=== PATIENT | male | born 1965 | race Caucasian/White ===

== ENCOUNTER → 2018-11-09 | Day surgery (SDC) | payer OTHER ==
[~2018-11-09] MED LIST: LIDOCAINE 1% INJ-PF (10 MG/ML) 30 ML SDV ONE
--- NOTE | 2018-11-09 14:18 | RADIOLOGY REPORT (SQ) ---
EXAM DESCRIPTION: ARTHRO SHOULDER INJECTION; FLUORO/NEEDLE PLACEMENT COMPLETED DATE/TIME: 11/09/2018 1:51 pm REASON FOR STUDY: (M25.512)PAIN IN LEFT SHOULDER M25.512 PAIN IN LEFT SHOULDER COMPARISON: None. FLUOROSCOPY TIME: 0.2 minutes. 1 images saved to PACS. LIMITATIONS: None. PROCEDURE: Procedure, risks, benefits and alternatives explained to patient who then gave written co nsent. The left shoulder was marked and a time out was called for correct procedure verification. Po sterior entry site marked using fluoroscopic guidance. Shoulder prepped and draped using sterile anel hnique. Local anesthesia achieved using 1% lidocaine injection. Hypodermic needle introduced into t he joint space under direct fluoroscopic visualization. Non-ionic contrast instilled to confirm intra -articular position. Dilute gadolinium solution then injected. Needle removed and entry site covered with sterile bandage. No immediate complications noted. TECHNIQUE: Digital images acquired during fluoroscopy and stored on PACS. Patient immediately take n to the MR suite for additional imaging. INJECTION LOCATION: Posterior left shoulder. CONTRAST TYPE AND AMOUNT: 1 mL Omnipaque and 10 mL Dotarem/Saline mixture. IMPRESSION: SUCCESSFUL NEEDLE PLACEMENT AND INJECTION FOR LEFT SHOULDER MR ARTHROGRAM USING POSTERIO R APPROACH. COMMENT: Quality ID [id number]: Final reports for procedures using fluoroscopy that document radiation exp osure indices, or exposure time and number of fluorographic images (if radiation exposure indices are not available) TECHNICAL DOCUMENTATION: JOB ID: [id number] [employer]- All Rights Reserved Reading location - IP/workstation name: [email or web address]
--- NOTE | 2018-11-09 14:37 | RADIOLOGY REPORT (SQ) ---
EXAM DESCRIPTION: MRI LT UPPER JOINT WITH COMPLETED DATE/TIME: 11/09/2018 2:10 pm REASON FOR STUDY: (M25.512)PAIN IN LEFT SHOULDER M25.512 PAIN IN LEFT SHOULDER COMPARISON: None. TECHNIQUE: Left shoulder images acquired and stored on PACS. Oblique coronal, oblique sagittal, and axial imaging to include fat sensitive sequences as T1, water sensitive sequences as FST2/STIR, and c ontrast sensitive sequences as FST1. LIMITATIONS: Motion. FINDINGS: JOINT DISTENTION: Adequate distention for interpretation. BONE MARROW AND CORTEX: Normal. No significant osteophytes. No edema or defects. AC JOINT: Type II acromion. No significant AC joint arthropathy. GLENOHUMERAL JOINT: No subluxation or dislocation. No focal chondral defects or reactive bone changes . ROTATOR CUFF: No significant tear identified. LABRUM AND BICEPS LABRAL COMPLEX: Increased signal in the anterior superior labrum most consistent wi th sublabral recess variant. No definite labral tear identified. INFERIOR LABRAL COMPLEX: Bony glenoid and labrum intact. IGHL intact without thickening or tear. No p aralabral cysts. ADJACENT SOFT TISSUES: No masses or nodes. OTHER: No other significant finding. IMPRESSION: Anatomic variant sublabral recess. No definite labral tear identified. TECHNICAL DOCUMENTATION: JOB ID: [id number] [employer]- All Rights Reserved Reading location - IP/workstation name: [email or web address]
== END ==
LOC: RAD 12:33
PROVIDERS: ATTEND Orthopaedic Surgery Sports Medicine
DX: M25.512 Pain in left shoulder (principal)
CPT/HCPCS: 73222; 77002; 23350; A9576; J3490

== ENCOUNTER → 2019-02-27 | Outpatient (CLI) | payer OTHER ==
--- NOTE | 2019-02-27 12:59 | RADIOLOGY REPORT (SQ) ---
EXAM DESCRIPTION: CHEST PA/LATERAL COMPLETED DATE/TIME: 02/27/2019 10:02 am REASON FOR STUDY: COUGH COMPARISON: 08/13/2013 EXAM PARAMETERS: NUMBER OF VIEWS: two views TECHNIQUE: Digital Frontal and Lateral radiographic views of the chest acquired. RADIATION DOSE: NA LIMITATIONS: none FINDINGS: LUNGS AND PLEURA: 4 cm mass right upper lobe. Lungs are otherwise clear. No pleural effusion. No pneumothorax. MEDIASTINUM AND HILAR STRUCTURES: No masses or contour abnormalities. HEART AND VASCULAR STRUCTURES: Moderate cardiomegaly BONES: No acute findings. HARDWARE: None in the chest. OTHER: No other significant finding. IMPRESSION: 4 cm lung mass right upper lobe TECHNICAL DOCUMENTATION: JOB ID: [id number] [employer]- All Rights Reserved Reading location - IP/workstation name: [email or web address]
== END ==
LOC: OD 09:43
PROVIDERS: ATTEND Physician Assistant
DX: R05 Cough (principal)
CPT/HCPCS: 71046

== ENCOUNTER 2019-02-28 17:01 | Inpatient (IN) | payer OTHER ==
--- NOTE | 2019-02-28 17:14 | PDOC H&P ---
History of Present Illness Admission Date/PCP: 02/28/19 17:01 MARIN ALFARO MD Patient complains of: Pneumonia and a lung mass History of Present Illness: JOHNNY BUCKLEY is a 53 year old male atient is here for follow-up for the CT scan chest report and a 1 day follow-up for the fever and chills Patient's chest x-ray initially showed a right upper lobe mass have a CT of the chest done which suggest a masslike effect possible infiltrate According to the patient he has a very frequent pneumonia in the past when he was in [place] always receive the antibiotic Patient came yesterday with a fever chills with the 102 fever initial flu test in office was negative patient was started on Augmentin and Tamiflu Patient is feeling much better this morning but according to the patient having some sweating the fever last night's Patient is denied any smoking but 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 Patient do not know why he got in the pneumonia when he was in [place] more frequently Patient other than that no chronic back problems but other than that no other medical history is Past Medical History Cardiac Medical History: Denies: Coronary Artery Disease, Myocardial Infarction, Hypertension Pulmonary Medical History: Reports: Bronchitis, Pneumonia Denies: Asthma, Chronic Obstructive Pulmonary Disease (COPD) Neurological Medical History: Denies: Seizures Musculoskeltal Medical History: Reports: Arthritis - BACK Hematology: Denies: Anemia Past Surgical History Past Surgical History: Reports: Orthopedic Surgery Social History Information Source: Patient Smoking Status: Never Smoker Electronic Cigarette use?: No Frequency of Alcohol Use: Rare Hx Recreational Drug Use: No Hx Prescription Drug Abuse: No Family History Family History: Reviewed & Not Pertinent Parental Family History Reviewed: Yes Children Family History Reviewed: Yes Sibling(s) Family History Reviewed.: Yes Medication/Allergy Home Medications: Cyclobenzaprine HCl [Flexeril 10 mg Tablet] 10 mg PO BID 12/31/14 Diflunisal 1,000 mg PO DAILY 12/31/14 Tramadol HCl [Ultram] 50 mg PO BID 12/31/14 Gabapentin 300 mg PO ASDIR PRN 02/05/15 Allergies/Adverse Reactions: ibuprofen [From Motrin] Allergy (Verified 02/05/15 17:59) naproxen [From Naprosyn] Allergy (Verified 02/05/15 17:59) tetracycline [Tetracycline] Allergy (Verified 02/05/15 17:59) Review of Systems Constitutional: PRESENT: chills, fever(s). ABSENT: headache(s), weight gain, weight loss Eyes: ABSENT: visual disturbances Ears: ABSENT: hearing changes Cardiovascular: ABSENT: chest pain, dyspnea on exertion, edema, orthropnea, pal pitations Respiratory: PRESENT: cough. ABSENT: hemoptysis Gastrointestinal: ABSENT: abdominal pain, constipation, diarrhea, hematemesis, hematochezia, nausea, vomiting Genitourinary: ABSENT: dysuria, hematuria Musculoskeletal: ABSENT: joint swelling Integumentary: ABSENT: rash, wounds Neurological: ABSENT: abnormal gait, abnormal speech, confusion, dizziness, focal weakness, syncope Psychiatric: ABSENT: anxiety, depression, homidical ideation, suicidal ideation Endocrine: ABSENT: cold intolerance, heat intolerance, menstrual abnormalities, polydipsia, polyuria Hematologic/Lymphatic: ABSENT: easy bleeding, easy bruising, lymphadenopathy Physical Exam General appearance: PRESENT: no acute distress, well-developed, well-nourished Head exam: PRESENT: atraumatic, normocephalic Eye exam: PRESENT: conjunctiva pink, EOMI, PERRLA. ABSENT: scleral icterus Ear exam: PRESENT: normal external ear exam Mouth exam: PRESENT: moist, tongue midline Neck exam: PRESENT: full ROM. ABSENT: carotid bruit, JVD, lymphadenopathy, thyromegaly Respiratory exam: PRESENT: clear to auscultation jose Cardiovascular exam: PRESENT: RRR. ABSENT: diastolic murmur, rubs, systolic murmur Pulses: PRESENT: normal dorsalis pedis pul, +2 pedal pulses bilateral Vascular exam: PRESENT: normal capillary refill GI/Abdominal exam: PRESENT: normal bowel sounds, soft. ABSENT: distended, guarding, mass, organolmegaly, rebound, tenderness Rectal exam: PRESENT: deferred Musculoskeletal exam: PRESENT: ambulatory Neurological exam: PRESENT: alert, awake, oriented to person, oriented to place, oriented to time, oriented to situation, CN II-XII grossly intact. ABSENT: motor sensory deficit Psychiatric exam: PRESENT: appropriate affect, normal mood. ABSENT: homicidal ideation, suicidal ideation Skin exam: PRESENT: dry, intact, warm. ABSENT: cyanosis, rash Assessment & Plan - Diagnosis (1) Right upper lobe pneumonia Qualifiers: Pneumonia type: due to unspecified organism Qualified Code(s): J18.9 - Pneumonia, unspecified organism Is this a current diagnosis for this admission?: Yes Plan: With a significant pneumonia mass-effect will admit the patient in the hospital for IV antibiotic and further pulmonary evaluations discussed with the patient and the with a CT scan report today and discussed with the Dr. Goodrich and admit in the medical floor and IV antibiotic (2) Mass of right lung Is this a current diagnosis for this admission?: Yes Plan: We will consult the pulmonary for further evaluations (3) Flu-like symptoms Is this a current diagnosis for this admission?: Yes Plan: Patient initial flu test is negative but patient is improved with the Tamiflu and antibiotics will continues the Tamiflu for another 4 days (4) Chronic pain syndrome Is this a current diagnosis for this admission?: Yes Plan: Continues to PRN pain medications patient is currently follow with the pain management with a chronic neck pain back pain (5) Postnasal drip Is this a current diagnosis for this admission?: Yes Plan: Patient's was told in the past patient had a chronic postnasal drip and chronic pneumonia from there - Time Time Spent: 30 to 50 Minutes Medications reviewed and adjusted accordingly: Yes Anticipated discharge: Home Within: Other - Inpatient Certification Based on my medical assessment, after consideration of the patient's comorbidities, presenting symptoms, or acuity I expect that the services needed warrant INPATIENT care.: Yes I certify that my determination is in accordance with my understanding of Medicare's requirements for reasonable and necessary INPATIENT services [42 CFR 412.3e].: Yes Medical Necessity: Failure to Improve With Outpatient Therapy, Need For IV Fluids, Need for IV Antibiotics 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
[2019-02-28] MEDS: NORMAL SALINE 1000 ML 1,000 ML IV PRN (18:45)
[2019-02-28] MEDS: ACETAMINOPHEN 325 MG TABLET PO PRN (18:51)
[2019-02-28] MEDS: OSELTAMIVIR PHOSPHATE 75 MG CAPSULE PO SCH (18:52)
[2019-02-28] MEDS: TRAMADOL HCL 50 MG TABLET PO SCH (21:42)
[2019-02-28] MEDS: CEFEPIME 2 GM/D5W RTU 2 GM/50 ML RTUPB IV SCH (21:43)
[2019-02-28] MEDS ORDERED: (PENDING PHARMACY ID) (Gabapentin Enacarbil [Horizant] 600 MG) PO SCH (22:00)
[2019-02-28] MEDS: GABAPENTIN 300 MG CAPSULE PO SCH (23:02)
[2019-03-01 05:24] LABS: ABSOLUTE EOSINOPHILS # (AUTO) 0.1 10^3/uL (0.0-0.6); ABSOLUTE LYMPHOCYTES (AUTO) 1.6 10^3/uL (0.5-4.7); ABSOLUTE MONOCYTES (AUTO) 1.1 10^3/uL (0.1-1.4); ABSOLUTE NEUT (AUTO) 8.2 10^3/uL (1.7-8.2); BASOPHILS % (AUTO) 0.2 % (0-2); EOSINOPHILS % (AUTO) 1.1 % (0-6); HEMATOCRIT 34.2 % (37.9-51.0); HEMOGLOBIN 11.5 g/dL (13.5-17.0); LYMPHOCYTES % (AUTO) 14.7 % (13-45); MEAN CORPUSCULAR HEMOGLOBIN 28.7 pg (27.0-33.4); MEAN CORPUSCULAR HGB CONC 33.6 g/dL (32.0-36.0); MEAN CORPUSCULAR VOLUME 85 fl (80-97); MONOCYTES % (AUTO) 9.6 % (3-13); PLATELET COUNT 111 10^3/uL (150-450); RED BLOOD COUNT 4.01 10^6/uL (4.35-5.55); RED CELL DISTRIBUTION WIDTH 14.8 % (11.5-14.0); SEGMENTED NEUTROPHILS % (AUTO) 74.4 % (42-78); TOTAL CELLS COUNTED % (AUTO) 100 %
[2019-03-01] MEDS: PANTOPRAZOLE SODIUM 40 MG TABLET.DR PO SCH (05:42)
[2019-03-01] MEDS: GABAPENTIN 300 MG CAPSULE PO SCH (05:42)
[2019-03-01 05:52] LABS: ALBUMIN 3.4 g/dL (3.5-5.0); ALKALINE PHOSPHATASE 49 U/L (38-126); ANION GAP 8 (5-19); ASPARTATE AMINO TRANSFERASE 16 U/L (17-59); BILIRUBIN,DIRECT 0.1 mg/dL (0.0-0.4); BILIRUBIN,TOTAL 0.4 mg/dL (0.2-1.3); BLOOD UREA NITROGEN 10 mg/dL (7-20); CALCIUM 8.6 mg/dL (8.4-10.2); CARBON DIOXIDE 25 mmol/L (22-30); CHLORIDE 109 mmol/L (98-107); GLUCOSE 95 mg/dL (75-110); POTASSIUM 3.7 mmol/L (3.6-5.0); TOTAL PROTEIN 5.8 g/dL (6.3-8.2)
[2019-03-01] MEDS: NORMAL SALINE 1000 ML 1,000 ML IV PRN ×2 (07:36→19:31)
[2019-03-01] MEDS: TRAMADOL HCL 50 MG TABLET PO SCH ×4 (09:36→21:54)
[2019-03-01] MEDS: OSELTAMIVIR PHOSPHATE 75 MG CAPSULE PO SCH ×2 (09:37→18:36)
[2019-03-01] MEDS: DOCUSATE SODIUM 100 MG/10 ML UDC PO SCH (09:37)
[2019-03-01] MEDS: CEFEPIME 2 GM/D5W RTU 2 GM/50 ML RTUPB IV SCH ×2 (09:53→21:24)
[2019-03-01] MEDS ORDERED: (PENDING PHARMACY ID) (Gabapentin Enacarbil [Horizant] 600 MG) PO SCH (10:00)
--- NOTE | 2019-03-01 11:39 | PDOC PROGRESS REPORT ---
Subjective Progress Note for:: 03/01/19 Subjective:: Patient is currently doing fair And low-grade temperature last night Denied any chest pain no short of breath patient actually feel much better compared to the couple of days back Reason For Visit: PNEUMONIA Physical Exam Vital Signs: Temp Pulse Resp BP Pulse Ox 98.5 F 62 16 124/68 100 03/01/19 07:30 03/01/19 07:30 03/01/19 07:30 03/01/19 07:30 03/01/19 07:30 Intake & Output 02/28/19 03/01/19 03/02/19 06:59 06:59 06:59 Intake Total 2160 900 Balance 2160 900 Weight 75.8 kg General appearance: PRESENT: no acute distress, well-developed, well-nourished Head exam: PRESENT: atraumatic, normocephalic Eye exam: PRESENT: conjunctiva pink, EOMI, PERRLA. ABSENT: scleral icterus Ear exam: PRESENT: normal external ear exam Mouth exam: PRESENT: moist, tongue midline Neck exam: PRESENT: full ROM. ABSENT: carotid bruit, JVD, lymphadenopathy, thyromegaly Respiratory exam: PRESENT: clear to auscultation jose Cardiovascular exam: PRESENT: RRR. ABSENT: diastolic murmur, rubs, systolic murmur Pulses: PRESENT: normal dorsalis pedis pul, +2 pedal pulses bilateral Vascular exam: PRESENT: normal capillary refill GI/Abdominal exam: PRESENT: normal bowel sounds, soft. ABSENT: distended, guarding, mass, organolmegaly, rebound, tenderness Rectal exam: PRESENT: deferred Musculoskeletal exam: PRESENT: ambulatory Neurological exam: PRESENT: alert, awake, oriented to person, oriented to place, oriented to time, oriented to situation, CN II-XII grossly intact. ABSENT: motor sensory deficit Psychiatric exam: PRESENT: appropriate affect, normal mood. ABSENT: homicidal ideation, suicidal ideation Skin exam: PRESENT: dry, intact, warm. ABSENT: cyanosis, rash Results Laboratory Results: 03/01/19 04:14 03/01/19 04:14 03/01/19 03/01/19 04:14 04:14 WBC 11.0 H RBC 4.01 L Hgb 11.5 L Hct 34.2 L MCV 85 MCH 28.7 MCHC 33.6 RDW 14.8 H Plt Count 111 L Seg Neutrophils % 74.4 Sodium 142.2 Potassium 3.7 Chloride 109 H Carbon Dioxide 25 Anion Gap 8 BUN 10 Creatinine 0.78 Est GFR ( Amer) > 60 Glucose 95 Calcium 8.6 Total Bilirubin 0.4 AST 16 L Alkaline Phosphatase 49 Total Protein 5.8 L Albumin 3.4 L Assessment & Plan - Diagnosis (1) Right upper lobe pneumonia Qualifiers: Pneumonia type: due to unspecified organism Qualified Code(s): J18.9 - Pneumonia, unspecified organism Is this a current diagnosis for this admission?: Yes Plan: Continues to IV antibiotic (2) Mass of right lung Is this a current diagnosis for this admission?: Yes Plan: Follow with the pulmonary (3) Flu-like symptoms Is this a current diagnosis for this admission?: Yes Plan: Patient initial flu test is negative but patient is improved with the Tamiflu and antibiotics will continues the Tamiflu for another 4 days (4) Chronic pain syndrome Is this a current diagnosis for this admission?: Yes Plan: Patient is currently see a pain management Dr. Lemus's currently taking the tramadol (5) Postnasal drip Is this a current diagnosis for this admission?: Yes - Time Time Spent with patient: 15-24 minutes Level of Care: MEDICAL Medications reviewed and adjusted accordingly: Yes Anticipated discharge: Home Within: Other - Plan Summary Plan Summary: Continues to IV antibiotics follow with the pulmonary discussed with the Dr. Goodrich he will evaluate the patient
[2019-03-01] MEDS: ACETAMINOPHEN 325 MG TABLET PO PRN (13:00)
[2019-03-01] MEDS ORDERED: VALACYCLOVIR HCL 500 MG TABLET PO ONE (13:30)
[2019-03-01] MEDS ORDERED: HORIZANT 600 MG PO SCH (14:30)
[2019-03-01] MEDS: HORIZANT 600 MG PO SCH ×2 (15:09→21:24)
[2019-03-01] MEDS: IPRATROPIUM/ALBUTEROL 0.5-2.5 MG/3 ML AMPUL NEB PRN (16:11)
[2019-03-01] MEDS: LACTOBACILLUS ACIDOPHILUS 250 MG TAB PO SCH (18:35)
[2019-03-01] MEDS: VALACYCLOVIR HCL 500 MG TABLET PO SCH (21:25)
[2019-03-01] MEDS: ONDANSETRON HCL INJ/PF 4 MG/2 ML SDV IV PRN (21:54)
[2019-03-02 06:52] LABS: ABSOLUTE EOSINOPHILS # (AUTO) 0.1 10^3/uL (0.0-0.6); ABSOLUTE LYMPHOCYTES (AUTO) 1.5 10^3/uL (0.5-4.7); ABSOLUTE MONOCYTES (AUTO) 0.8 10^3/uL (0.1-1.4); ABSOLUTE NEUT (AUTO) 5.7 10^3/uL (1.7-8.2); BASOPHILS % (AUTO) 0.2 % (0-2); EOSINOPHILS % (AUTO) 1.3 % (0-6); HEMATOCRIT 32.7 % (37.9-51.0); HEMOGLOBIN 11.2 g/dL (13.5-17.0); LYMPHOCYTES % (AUTO) 18.8 % (13-45); MEAN CORPUSCULAR HEMOGLOBIN 28.6 pg (27.0-33.4); MEAN CORPUSCULAR HGB CONC 34.1 g/dL (32.0-36.0); MEAN CORPUSCULAR VOLUME 84 fl (80-97); MONOCYTES % (AUTO) 9.9 % (3-13); PLATELET COUNT 117 10^3/uL (150-450); RED BLOOD COUNT 3.91 10^6/uL (4.35-5.55); RED CELL DISTRIBUTION WIDTH 14.9 % (11.5-14.0); SEGMENTED NEUTROPHILS % (AUTO) 69.8 % (42-78); TOTAL CELLS COUNTED % (AUTO) 100 %; WHITE BLOOD COUNT 8.1 10^3/uL (4.0-10.5)
[2019-03-02 06:54] LABS: ANION GAP 10 (5-19); BLOOD UREA NITROGEN 6 mg/dL (7-20); CALCIUM 8.8 mg/dL (8.4-10.2); CARBON DIOXIDE 23 mmol/L (22-30); CHLORIDE 107 mmol/L (98-107); GLUCOSE 97 mg/dL (75-110); POTASSIUM 3.7 mmol/L (3.6-5.0)
[2019-03-02] MEDS: PANTOPRAZOLE SODIUM 40 MG TABLET.DR PO SCH (06:57)
[2019-03-02] MEDS: CEFEPIME 2 GM/D5W RTU 2 GM/50 ML RTUPB IV SCH ×2 (10:28→21:45)
[2019-03-02] MEDS: TRAMADOL HCL 50 MG TABLET PO SCH ×4 (10:29→21:45)
[2019-03-02] MEDS: LACTOBACILLUS ACIDOPHILUS 250 MG TAB PO SCH ×2 (10:29→18:19)
[2019-03-02] MEDS: OSELTAMIVIR PHOSPHATE 75 MG CAPSULE PO SCH ×2 (10:29→18:19)
[2019-03-02] MEDS: VALACYCLOVIR HCL 500 MG TABLET PO SCH ×2 (10:29→21:46)
[2019-03-02] MEDS: HORIZANT 600 MG PO SCH ×2 (10:29→21:45)
[2019-03-02] MEDS: NORMAL SALINE 1000 ML 1,000 ML IV PRN (10:32)
[2019-03-02] MEDS: DOCUSATE SODIUM 100 MG/10 ML UDC PO SCH (10:33)
[2019-03-02] MEDS: IPRATROPIUM/ALBUTEROL 0.5-2.5 MG/3 ML AMPUL NEB PRN (15:42)
--- NOTE | 2019-03-02 18:42 | PDOC PROGRESS REPORT ---
Subjective Progress Note for:: 03/02/19 Subjective:: Patient reported improvement in his breathing. He reported that his coughing persist but mostly nonproductive. No chest pain. No definite fever, chills, or diaphoresis. No nausea, vomiting or abdominal pain. Reason For Visit: PNEUMONIA Physical Exam Vital Signs: Temp Pulse Resp BP Pulse Ox 98.2 F 71 16 135/69 H 100 03/02/19 16:00 03/02/19 16:00 03/02/19 16:00 03/02/19 16:00 03/02/19 16:00 Intake & Output 03/01/19 03/02/19 03/03/19 06:59 06:59 06:59 Intake Total 2160 3394 1290 Balance 2160 3394 1290 Weight 75.8 kg 76.2 kg General appearance: PRESENT: no acute distress, well-developed, well-nourished Head exam: PRESENT: atraumatic, normocephalic Eye exam: PRESENT: conjunctiva pink, EOMI, PERRLA. ABSENT: scleral icterus Ear exam: PRESENT: normal external ear exam Mouth exam: PRESENT: moist Respiratory exam: PRESENT: clear to auscultation jose Cardiovascular exam: PRESENT: RRR. ABSENT: diastolic murmur, rubs, systolic murmur Vascular exam: ABSENT: pallor GI/Abdominal exam: PRESENT: normal bowel sounds, soft. ABSENT: distended, guarding, mass, organolmegaly, rebound, tenderness Extremities exam: ABSENT: pedal edema Neurological exam: PRESENT: alert, awake, oriented to person, oriented to place, oriented to time, oriented to situation, CN II-XII grossly intact. ABSENT: motor sensory deficit Psychiatric exam: PRESENT: appropriate affect, normal mood. ABSENT: homicidal ideation, suicidal ideation Skin exam: PRESENT: dry, warm Results Laboratory Results: 03/02/19 05:50 03/02/19 05:50 03/02/19 03/02/19 05:50 05:50 WBC 8.1 RBC 3.91 L Hgb 11.2 L Hct 32.7 L MCV 84 MCH 28.6 MCHC 34.1 RDW 14.9 H Plt Count 117 L Seg Neutrophils % 69.8 Sodium 140.2 Potassium 3.7 Chloride 107 Carbon Dioxide 23 Anion Gap 10 BUN 6 L Creatinine 0.67 Est GFR ( Amer) > 60 Glucose 97 Calcium 8.8 02/28/19 18:35 Clean Catch Midstream Urine Culture - Final NO GROWTH 2 DAYS Assessment & Plan - Diagnosis (1) Right upper lobe pneumonia Qualifiers: Pneumonia type: due to unspecified organism Qualified Code(s): J18.9 - Pneumonia, unspecified organism Is this a current diagnosis for this admission?: Yes Plan: Continue IV Cefepime coverage. (2) Mass of right lung Is this a current diagnosis for this admission?: Yes Plan: Continue current management with intent to repeat X ray or chest CT in the future for further evaluation. Follow up on pulmonary consult request. (3) Chronic pain syndrome Is this a current diagnosis for this admission?: Yes Plan: Maintain on Horizant and Tramadol therapy for chronic pain management. - Time Time Spent with patient: 25-34 minutes Level of Care: MEDICAL Medications reviewed and adjusted accordingly: Yes Anticipated discharge: Home Within: Other - Inpatient Certification Based on my medical assessment, after consideration of the patient's comorbidities, presenting symptoms, or acuity I expect that the services needed warrant INPATIENT care.: Yes I certify that my determination is in accordance with my understanding of Medicare's requirements for reasonable and necessary INPATIENT services [42 CFR 412.3e].: Yes Medical Necessity: Significant Comorbidiites Make Outpatient Treatment Too Risky, Need Close Monitoring Due to Risk of Patient Decompensation, Need For IV Fluids, Need for Pain Control, Need for IV Antibiotics, Risk of Complication if Not Cared For in Hospital, Risk of Diagnosis Which Will Require Inpatient Eval/Care/Monitoring 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
[2019-03-02] MEDS: ONDANSETRON HCL INJ/PF 4 MG/2 ML SDV IV PRN (21:56)
[2019-03-02] MEDS: ACETAMINOPHEN 325 MG TABLET PO PRN (21:56)
[2019-03-03] MEDS: NORMAL SALINE 1000 ML 1,000 ML IV PRN ×2 (03:54→19:30)
[2019-03-03 06:09] LABS: ABSOLUTE EOSINOPHILS # (AUTO) 0.1 10^3/uL (0.0-0.6); ABSOLUTE LYMPHOCYTES (AUTO) 1.3 10^3/uL (0.5-4.7); ABSOLUTE MONOCYTES (AUTO) 0.9 10^3/uL (0.1-1.4); ABSOLUTE NEUT (AUTO) 6.6 10^3/uL (1.7-8.2); BASOPHILS % (AUTO) 0.2 % (0-2); EOSINOPHILS % (AUTO) 1.4 % (0-6); HEMATOCRIT 32.2 % (37.9-51.0); LYMPHOCYTES % (AUTO) 14.9 % (13-45); MEAN CORPUSCULAR HEMOGLOBIN 28.8 pg (27.0-33.4); MEAN CORPUSCULAR HGB CONC 34.1 g/dL (32.0-36.0); MEAN CORPUSCULAR VOLUME 85 fl (80-97); MONOCYTES % (AUTO) 9.7 % (3-13); PLATELET COUNT 143 10^3/uL (150-450); RED BLOOD COUNT 3.81 10^6/uL (4.35-5.55); RED CELL DISTRIBUTION WIDTH 14.2 % (11.5-14.0); SEGMENTED NEUTROPHILS % (AUTO) 73.8 % (42-78); TOTAL CELLS COUNTED % (AUTO) 100 %
[2019-03-03 06:35] LABS: ANION GAP 9 (5-19); BLOOD UREA NITROGEN 6 mg/dL (7-20); CALCIUM 8.5 mg/dL (8.4-10.2); CARBON DIOXIDE 26 mmol/L (22-30); CHLORIDE 104 mmol/L (98-107); GLUCOSE 88 mg/dL (75-110); POTASSIUM 3.7 mmol/L (3.6-5.0)
[2019-03-03] MEDS: ACETAMINOPHEN 325 MG TABLET PO PRN ×2 (07:03→12:09)
[2019-03-03] MEDS: PANTOPRAZOLE SODIUM 40 MG TABLET.DR PO SCH (07:04)
[2019-03-03] MEDS: OSELTAMIVIR PHOSPHATE 75 MG CAPSULE PO SCH ×2 (09:07→17:30)
[2019-03-03] MEDS: HORIZANT 600 MG PO SCH ×2 (09:08→21:15)
[2019-03-03] MEDS: TRAMADOL HCL 50 MG TABLET PO SCH ×4 (09:08→21:14)
[2019-03-03] MEDS: CEFEPIME 2 GM/D5W RTU 2 GM/50 ML RTUPB IV SCH ×2 (09:08→21:15)
[2019-03-03] MEDS: LACTOBACILLUS ACIDOPHILUS 250 MG TAB PO SCH ×2 (09:08→17:30)
[2019-03-03] MEDS: VALACYCLOVIR HCL 500 MG TABLET PO SCH ×2 (09:08→21:15)
[2019-03-03] MEDS: DOCUSATE SODIUM 100 MG/10 ML UDC PO SCH (09:12)
--- NOTE | 2019-03-03 13:00 | PDOC PROGRESS REPORT ---
Subjective Progress Note for:: 03/03/19 Subjective:: Patient had episode of fever at 101F earlier today and reported recurrent of diarrhea. Coughing is less. No chest pain or difficulty with breathing. No nausea, vomiting, abdominal pain. Reason For Visit: PNEUMONIA Physical Exam Vital Signs: Temp Pulse Resp BP Pulse Ox 99.0 F 68 18 123/71 99 03/03/19 07:33 03/03/19 07:33 03/03/19 07:33 03/03/19 07:33 03/03/19 07:33 Intake & Output 03/02/19 03/03/19 03/04/19 06:59 06:59 06:59 Intake Total 3394 2340 50 Balance 3394 2340 50 Weight 76.2 kg 76.2 kg Physical Exam: General appearance: PRESENT: no acute distress, well-developed, well-nourished Head exam: PRESENT: atraumatic, normocephalic Eye exam: PRESENT: conjunctiva pink, EOMI, PERRLA. ABSENT: pallor, scleral icterus Ear exam: PRESENT: normal external ear exam Mouth exam: PRESENT: moist Respiratory exam: PRESENT: clear to auscultation jose Cardiovascular exam: PRESENT: RRR. ABSENT: diastolic murmur, rubs, systolic murmur GI/Abdominal exam: PRESENT: normal bowel sounds, soft. ABSENT: distended, guarding, mass, organomegaly, rebound, tenderness Extremities exam: ABSENT: pedal edema Neurological exam: PRESENT: alert, awake, oriented to person, oriented to place, oriented to time, oriented to situation, CN II-XII grossly intact. ABSENT: motor sensory deficit Psychiatric exam: PRESENT: appropriate affect, normal mood. ABSENT: homicidal ideation, suicidal ideation Skin exam: PRESENT: dry, warm Results Laboratory Results: 03/03/19 05:24 03/03/19 05:24 03/03/19 03/03/19 05:24 05:24 WBC 9.0 RBC 3.81 L Hgb 11.0 L Hct 32.2 L MCV 85 MCH 28.8 MCHC 34.1 RDW 14.2 H Plt Count 143 L Seg Neutrophils % 73.8 Sodium 138.5 Potassium 3.7 Chloride 104 Carbon Dioxide 26 Anion Gap 9 BUN 6 L Creatinine 0.60 Est GFR ( Amer) > 60 Glucose 88 Calcium 8.5 02/28/19 18:35 Clean Catch Midstream Urine Culture - Final NO GROWTH 2 DAYS Assessment & Plan - Diagnosis (1) Right upper lobe pneumonia Qualifiers: Pneumonia type: due to unspecified organism Qualified Code(s): J18.9 - Pneumonia, unspecified organism Is this a current diagnosis for this admission?: Yes Plan: His leukocytosis has resolved. His fever may be from the antibiotic or his reported diarrhea. Continue current antibiotic coverage and follow up on stool evaluation. (2) Mass of right lung Is this a current diagnosis for this admission?: Yes (3) Chronic pain syndrome Is this a current diagnosis for this admission?: Yes (4) Diarrhea due to drug Is this a current diagnosis for this admission?: Yes Plan: This may be side effect of IV Ceftriaxone therapy. Obtain stool assessment for C.difficile. If negative consider anti-diarrhea medication management. - Time Time Spent with patient: 25-34 minutes Level of Care: MEDICAL Medications reviewed and adjusted accordingly: Yes Anticipated discharge: Home Within: Other - Inpatient Certification Based on my medical assessment, after consideration of the patient's comorbidities, presenting symptoms, or acuity I expect that the services needed warrant INPATIENT care.: Yes I certify that my determination is in accordance with my understanding of Medicare's requirements for reasonable and necessary INPATIENT services [42 CFR 412.3e].: Yes Medical Necessity: Significant Comorbidiites Make Outpatient Treatment Too Risky, Need Close Monitoring Due to Risk of Patient Decompensation, Need For IV Fluids, Need for IV Antibiotics, Risk of Complication if Not Cared For in Hospital, Risk of Diagnosis Which Will Require Inpatient Eval/Care/Monitoring 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
[2019-03-03] MEDS: IPRATROPIUM/ALBUTEROL 0.5-2.5 MG/3 ML AMPUL NEB PRN (15:29)
[2019-03-03 22:34] LABS: C DIFFICILE GDH POSITIVE (NEGATIVE)
[2019-03-03] MEDS ORDERED: METRONIDAZOLE 500 MG TABLET PO ONE (23:30)
[2019-03-03] MEDS: ONDANSETRON HCL INJ/PF 4 MG/2 ML SDV IV PRN (23:49)
[2019-03-04] MEDS: PANTOPRAZOLE SODIUM 40 MG TABLET.DR PO SCH (05:10)
[2019-03-04 06:25] LABS: ANION GAP 7 (5-19); BLOOD UREA NITROGEN 5 mg/dL (7-20); CALCIUM 8.7 mg/dL (8.4-10.2); CARBON DIOXIDE 26 mmol/L (22-30); CHLORIDE 107 mmol/L (98-107); GLUCOSE 88 mg/dL (75-110); POTASSIUM 3.7 mmol/L (3.6-5.0)
--- NOTE | 2019-03-04 09:16 | PDOC PROGRESS REPORT ---
Subjective Progress Note for:: 03/04/19 Subjective:: Patient is currently doing fair Still having some low-grade fever cough congestions Patients have a positive for C. difficile with some loose stools Had any abdominal pain no chest pain no short of breath Reason For Visit: PNEUMONIA Physical Exam Vital Signs: Temp Pulse Resp BP Pulse Ox 98.6 F 58 L 16 135/81 H 100 03/04/19 08:00 03/04/19 08:00 03/04/19 08:00 03/04/19 08:00 03/04/19 08:00 Intake & Output 03/03/19 03/04/19 03/05/19 06:59 06:59 06:59 Intake Total 2340 2640 Balance 2340 2640 Weight 76.2 kg 77 kg General appearance: PRESENT: no acute distress, well-developed, well-nourished Head exam: PRESENT: atraumatic, normocephalic Eye exam: PRESENT: conjunctiva pink, EOMI, PERRLA. ABSENT: scleral icterus Ear exam: PRESENT: normal external ear exam Mouth exam: PRESENT: moist, tongue midline Neck exam: PRESENT: full ROM. ABSENT: carotid bruit, JVD, lymphadenopathy, thy romegaly Cardiovascular exam: PRESENT: RRR. ABSENT: diastolic murmur, rubs, systolic murmur Pulses: PRESENT: normal dorsalis pedis pul, +2 pedal pulses bilateral Vascular exam: PRESENT: normal capillary refill GI/Abdominal exam: PRESENT: normal bowel sounds, soft. ABSENT: distended, guarding, mass, organolmegaly, rebound, tenderness Rectal exam: PRESENT: deferred Musculoskeletal exam: PRESENT: ambulatory Neurological exam: PRESENT: alert, awake, oriented to person, oriented to place, oriented to time, oriented to situation, CN II-XII grossly intact. ABSENT: motor sensory deficit Psychiatric exam: PRESENT: appropriate affect, normal mood. ABSENT: homicidal ideation, suicidal ideation Skin exam: PRESENT: dry, intact, warm. ABSENT: cyanosis, rash Results Laboratory Results: 03/03/19 05:24 03/04/19 04:47 03/04/19 04:47 Sodium 139.9 Potassium 3.7 Chloride 107 Carbon Dioxide 26 Anion Gap 7 BUN 5 L Creatinine 0.69 Est GFR ( Amer) > 60 Glucose 88 Calcium 8.7 Assessment & Plan - Diagnosis (1) Right upper lobe pneumonia Qualifiers: Pneumonia type: due to unspecified organism Qualified Code(s): J18.9 - Pneumonia, unspecified organism Is this a current diagnosis for this admission?: Yes Plan: Continues to IV antibiotics will repeat the CT scan (2) Mass of right lung Is this a current diagnosis for this admission?: Yes Plan: Will await the pulmonary consult (3) Flu-like symptoms Is this a current diagnosis for this admission?: Yes Plan: Patient is finished the 5-day course of the Tamiflu (4) Chronic pain syndrome Is this a current diagnosis for this admission?: Yes Plan: Patient is currently see a pain management Dr. Lemus's currently taking the tramadol (5) Postnasal drip Is this a current diagnosis for this admission?: Yes Plan: Patient's was told in the past patient had a chronic postnasal drip and chronic pneumonia from there (6) C. difficile colitis Is this a current diagnosis for this admission?: Yes Plan: Continues the Flagyl and probiotics - Time Time Spent with patient: 15-24 minutes Level of Care: MEDICAL Medications reviewed and adjusted accordingly: Yes Anticipated discharge: Home Within: Other - Plan Summary Plan Summary: Continues to current medications we will repeat the CT of the chest
[2019-03-04] MEDS: CEFEPIME 2 GM/D5W RTU 2 GM/50 ML RTUPB IV SCH ×2 (09:45→21:03)
[2019-03-04] MEDS: METRONIDAZOLE 500 MG TABLET PO SCH ×5 (09:46→17:52)
[2019-03-04] MEDS: LACTOBACILLUS ACIDOPHILUS 250 MG TAB PO SCH ×2 (09:47→17:52)
[2019-03-04] MEDS: VALACYCLOVIR HCL 500 MG TABLET PO SCH (09:47)
[2019-03-04] MEDS: TRAMADOL HCL 50 MG TABLET PO SCH ×6 (09:47→21:06)
[2019-03-04] MEDS: DOCUSATE SODIUM 100 MG/10 ML UDC PO SCH (09:48)
--- NOTE | 2019-03-04 09:48 | RADIOLOGY REPORT (SQ) ---
EXAM DESCRIPTION: CT CHEST WITHOUT COMPLETED DATE/TIME: 03/04/2019 9:25 am REASON FOR STUDY: pnemonia/lung mass COMPARISON: 02/28/2019 TECHNIQUE: CT scan performed of the chest without intravenous contrast. Images reviewed with lung, soft tissue and bone windows. Reconstructed coronal and sagittal MPR images reviewed. All images st ored on PACS. All CT scanners at this facility use dose modulation, iterative reconstruction, and/or weight based d osing when appropriate to reduce radiation dose to as low as reasonably achievable (ALARA). [facility]: Dose Right [facility]: CareDose [facility]: Dose Right [facility]: Teradose 4D [facility]: Loved.la RADIATION DOSE: CT Rad equipment meets quality standard of care and radiation dose reduction techniq ues were employed. CTDIvol: 7.6 mGy. DLP: 286 mGy-cm. mGy. LIMITATIONS: No technical limitations. FINDINGS: LUNGS AND PLEURA: Persistent patchy areas of consolidation in both upper lobes not signifi cantly changed. There is now more conspicuous patchy involvement of the lower lobes. Trace pleural effusions. HILAR AND MEDIASTINAL STRUCTURES: No identified masses or abnormal nodes. No obvious aneurysm. HEART AND VASCULAR STRUCTURES: No aneurysm. No pericardial effusion. UPPER ABDOMEN: No significant findings. Limited exam. THYROID AND OTHER SOFT TISSUES: No masses. No adenopathy. BONES: No significant finding. HARDWARE: None in the chest. OTHER: No other significant findings. IMPRESSION: Probable multifocal pneumonia or sepsis with unchanged appearance of the upper lobes, an d interval development of airspace disease in both lower lobes. TECHNICAL DOCUMENTATION: JOB ID: [id number] Quality ID # [id number]: Final reports with documentation of one or more dose reduction techniques (e.g., Au tomated exposure control, adjustment of the mA and/or kV according to patient size, use of iterative reconstruction technique) 2010 [employer]- All Rights Reserved Reading location - IP/workstation name: [email or web address]
[2019-03-04] MEDS: HORIZANT 600 MG PO SCH ×2 (09:49→21:06)
[2019-03-04] MEDS: NORMAL SALINE 1000 ML 1,000 ML IV PRN (09:51)
[2019-03-04] MEDS: ACETAMINOPHEN 325 MG TABLET PO PRN (11:39)
[2019-03-04] MEDS: LEVOFLOXACIN 500 MG TABLET PO SCH (11:39)
[2019-03-04] MEDS: ONDANSETRON HCL INJ/PF 4 MG/2 ML SDV IV PRN (14:52)
[2019-03-04] MEDS ORDERED: PROMETHAZINE HCL 25 MG TABLET PO PRN (17:23)
--- NOTE | 2019-03-04 18:31 | RADIOLOGY REPORT (SQ) ---
EXAM DESCRIPTION: CT ABD/PELVIS WITH IV ONLY COMPLETED DATE/TIME: 03/04/2019 4:51 pm REASON FOR STUDY: abd pain/colitis COMPARISON: CT of the chest without contrast 03/04/[address] of the abdomen pelvis without contrast from 09/01/2014. TECHNIQUE: CT scan of the abdomen and pelvis performed using helical scanning technique with dynamic intravenous contrast injection. No oral contrast. Images reviewed with lung, soft tissue, and bone windows. Reconstructed coronal and sagittal MPR images reviewed. Delayed images for evaluation of the urinary system also acquired. All images stored on PACS. All CT scanners at this facility use dose modulation, iterative reconstruction, and/or weight based d osing when appropriate to reduce radiation dose to as low as reasonably achievable (ALARA). [facility]: Dose Right [facility]: CareDose [facility]: Dose Right [facility]: Teradose 4D [facility]: SDI-Solution CONTRAST TYPE AND DOSE: Contrast/concentration: Isovue 350.00 mg/ml; Total Contrast Delivered: 88.0 ml; Total Saline Delivered: 29.0 ml RENAL FUNCTION: Creatinine 0.69 milligram/deciliter. RADIATION DOSE: CT Rad equipment meets quality standard of care and radiation dose reduction techniq ues were employed. CTDIvol: 5.8 - 5.9 mGy. DLP: 635 mGy-cm. LIMITATIONS: None. FINDINGS: LOWER CHEST: Refer separate report of the CT of the chest. LIVER: The morphology of the liver is non cirrhotic. The portal veins are patent. The subcentimeter hypodensity within the inferior aspect of the right hepatic lobe (image 30 of series 2) is indetermi isidro based on size. The portal veins are patent. SPLEEN: No splenomegaly or splenic lesion. PANCREAS: No acute abnormality. GALLBLADDER: Cholelithiasis. There is no associated gallbladder wall thickening or pericholecystic f luid. The intrahepatic bile ducts are normal in caliber. ADRENAL GLANDS: No abnormality RIGHT KIDNEY AND URETER: No solid mass, hydronephrosis, nephrolithiasis, hydroureter or ureterolithia sis. LEFT KIDNEY AND URETER: No solid mass, hydronephrosis, nephrolithiasis, hydroureter or ureterolithias is. AORTA AND VESSELS: No aneurysm or dissection of the abdominal aorta. Variant retroaortic left renal vein. RETROPERITONEUM: No retroperitoneal adenopathy, hemorrhage or mass. BOWEL AND PERITONEAL CAVITY: Segmental circumferential mural thickening associated with stranding of the pericolonic fat and reactive adenopathy involving the ascending colon and hepatic flexure. Ther e is no associated obstruction. There are diverticula throughout the descending and sigmoid colon wi thout other ancillary findings to indicate an acute diverticulitis. There is no free intraperitoneal fluid. APPENDIX: Unable to identify the appendix. PELVIS: Urinary bladder is distended and normal in appearance. The prostate gland is enlarged and he terogeneous ABDOMINAL WALL: No masses or hernias. BONES: No acute findings. OTHER: No other finding. IMPRESSION: 1. Segmental circumferential mural thickening associated with stranding of the pericolon ic fat and reactive adenopathy involving the ascending colon and hepatic flexure - these findings are nonspecific and could represent an infectious, inflammatory or ischemic colitis. 2. Other findings as detailed above. TECHNICAL DOCUMENTATION: JOB ID: [id number] Quality ID # [id number]: Final reports with documentation of one or more dose reduction techniques (e.g., Au tomated exposure control, adjustment of the mA and/or kV according to patient size, use of iterative reconstruction technique) 2010 [employer]- All Rights Reserved Reading location - IP/workstation name: [email or web address]
[2019-03-05] MEDS: NORMAL SALINE 1000 ML 1,000 ML IV PRN (03:32)
[2019-03-05] MEDS: PANTOPRAZOLE SODIUM 40 MG TABLET.DR PO SCH (05:08)
[2019-03-05 06:29] LABS: ABSOLUTE EOSINOPHILS # (AUTO) 0.2 10^3/uL (0.0-0.6); ABSOLUTE LYMPHOCYTES (AUTO) 1.5 10^3/uL (0.5-4.7); ABSOLUTE MONOCYTES (AUTO) 0.6 10^3/uL (0.1-1.4); ABSOLUTE NEUT (AUTO) 5.7 10^3/uL (1.7-8.2); BASOPHILS % (AUTO) 0.4 % (0-2); EOSINOPHILS % (AUTO) 1.9 % (0-6); HEMOGLOBIN 11.7 g/dL (13.5-17.0); LYMPHOCYTES % (AUTO) 18.8 % (13-45); MEAN CORPUSCULAR HEMOGLOBIN 28.8 pg (27.0-33.4); MEAN CORPUSCULAR HGB CONC 34.3 g/dL (32.0-36.0); MEAN CORPUSCULAR VOLUME 84 fl (80-97); PLATELET COUNT 224 10^3/uL (150-450); RED BLOOD COUNT 4.05 10^6/uL (4.35-5.55); RED CELL DISTRIBUTION WIDTH 14.4 % (11.5-14.0); SEGMENTED NEUTROPHILS % (AUTO) 70.9 % (42-78); TOTAL CELLS COUNTED % (AUTO) 100 %; WHITE BLOOD COUNT 8.1 10^3/uL (4.0-10.5)
[2019-03-05 06:54] LABS: ANION GAP 14 (5-19); BLOOD UREA NITROGEN 6 mg/dL (7-20); CARBON DIOXIDE 25 mmol/L (22-30); CHLORIDE 104 mmol/L (98-107); GLUCOSE 93 mg/dL (75-110); POTASSIUM 3.7 mmol/L (3.6-5.0)
--- NOTE | 2019-03-05 08:25 | PDOC CONSULTATION ---
Consultation Consult Date: 03/05/19 Attending physician:: MARIN ALFARO Provider Consulted: LILIAN CORTEZ Consult reason:: Newly noted mass in the right upper lobe History of Present Illness Admission Date/PCP: 02/28/19 17:01 MARIN ALFARO MD Patient complains of: Cough, shortness of breath History of Present Illness: JOHNNY BUCKLEY is a 53 year old male with newly noted right upper lobe abnormality. About 1 week ago he began having shortness of breath and cough, he had low-grade fevers at home, ultimately had a chest x-ray done which showed a mass of 4 cm in the right upper lobe. However patient notes that from 2007 when he was active , almost every winter time he had a pneumonia. He never was admitted but had oral antibiotics and sick for several days bedridden during these times. 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 He had a CT of the chest done upon admission which indicated right upper lobe mass with some element of pneumonia. He has been treated for about 5 days now and had a CT repeated, which indicates a more multifocal type pneumonia picture. However I reviewed the images myself and feel like there is some solid component to the area of infection. I recommended that Dr. Alfaro get a CT of th e abdomen pelvis. This shows thickening in the ascending colon along with some adenopathy. Of note, patient has had worsened diarrhea since being here and was found to have C. difficile. He denies any weight loss, no hemoptysis, no pain anywhere else and overall is starting to feel little bit better. Past Medical History Cardiac Medical History: Denies: Coronary Artery Disease, Myocardial Infarction, Hypertension Pulmonary Medical History: Reports: Bronchitis, Pneumonia Denies: Asthma, Chronic Obstructive Pulmonary Disease (COPD) Neurological Medical History: Denies: Seizures Musculoskeltal Medical History: Reports: Arthritis - BACK Psychiatric Medical History: Denies: Depression Hematology: Denies: Anemia Past Surgical History Past Surgical History: Reports: Orthopedic Surgery, Other - Colonoscopy about 3 years ago Social History Information Source: Patient Smoking Status: Never Smoker Electronic Cigarette use?: No Frequency of Alcohol Use: Rare Hx Recreational Drug Use: No Drugs: None Hx Prescription Drug Abuse: No - Advance Directive Resuscitation Status: Full Code Family History Family History: Reviewed & Not Pertinent Parental Family History Reviewed: Yes Children Family History Reviewed: Yes Sibling(s) Family History Reviewed.: Yes Medication/Allergy Home Medications: Baclofen [Baclofen 10 mg Tablet] 10 mg PO Q8HP PRN 02/28/19 Gabapentin Enacarbil [Horizant] 600 mg PO Q12 02/28/19 Promethazine HCl [Phenergan 25 mg Tablet] 25 mg PO Q8HP PRN 02/28/19 Sildenafil Citrate [Viagra] 50 mg PO ASDIR PRN 02/28/19 Tramadol HCl [Ultram 50 mg Tablet] 50 mg PO QID 02/28/19 Allergies/Adverse Reactions: ibuprofen [From Motrin] Allergy (Verified 02/05/15 17:59) naproxen [From Naprosyn] Allergy (Verified 02/05/15 17:59) tetracycline [Tetracycline] Allergy (Verified 02/05/15 17:59) Review of Systems Constitutional: ABSENT: chills, fever(s), headache(s), weight gain, weight loss Eyes: ABSENT: visual disturbances Ears: ABSENT: hearing changes Cardiovascular: ABSENT: chest pain, dyspnea on exertion, edema, orthropnea, palpitations Respiratory: ABSENT: cough, hemoptysis Gastrointestinal: ABSENT: abdominal pain, constipation, diarrhea, hematemesis, hematochezia, nausea, vomiting Genitourinary: ABSENT: dysuria, hematuria Musculoskeletal: ABSENT: joint swelling Integumentary: ABSENT: rash, wounds Neurological: ABSENT: abnormal gait, abnormal speech, confusion, dizziness, focal weakness, syncope Psychiatric: ABSENT: anxiety, depression, homidical ideation, suicidal ideation Endocrine: ABSENT: cold intolerance, heat intolerance, polydipsia, polyuria Hematologic/Lymphatic: ABSENT: easy bleeding, easy bruising Physical Exam Vital Signs: Temp Pulse Resp BP Pulse Ox 98.8 F 62 17 131/62 H 99 03/05/19 00:00 03/05/19 00:00 03/05/19 00:00 03/05/19 00:00 03/05/19 00:00 Intake & Output 03/04/19 03/05/19 03/06/19 06:59 06:59 06:59 Intake Total 2640 2410 Balance 2640 2410 Weight 77 kg 81.1 kg General appearance: PRESENT: no acute distress, well-developed, well-nourished Head exam: PRESENT: atraumatic, normocephalic Eye exam: PRESENT: conjunctiva pink, EOMI, PERRLA. ABSENT: scleral icterus Ear exam: PRESENT: normal external ear exam Mouth exam: PRESENT: moist, tongue midline Neck exam: ABSENT: carotid bruit, JVD, lymphadenopathy, thyromegaly Respiratory exam: PRESENT: clear to auscultation jose. ABSENT: rales, rhonchi, wheezes Cardiovascular exam: PRESENT: RRR. ABSENT: diastolic murmur, rubs, systolic murmur Pulses: PRESENT: normal dorsalis pedis pul Vascular exam: PRESENT: normal capillary refill GI/Abdominal exam: PRESENT: normal bowel sounds, soft. ABSENT: distended, guarding, mass, organolmegaly, rebound, tenderness Rectal exam: PRESENT: deferred Extremities exam: PRESENT: full ROM. ABSENT: calf tenderness, clubbing, pedal edema Neurological exam: PRESENT: alert, awake, oriented to person, oriented to place, oriented to time, oriented to situation, CN II-XII grossly intact. ABSENT: motor sensory deficit Psychiatric exam: PRESENT: appropriate affect, normal mood. ABSENT: homicidal ideation, suicidal ideation Skin exam: PRESENT: dry, intact, warm. ABSENT: cyanosis, rash Results Laboratory Results: 03/05/19 05:25 03/05/19 05:25 03/05/19 03/05/19 05:25 05:25 WBC 8.1 RBC 4.05 L Hgb 11.7 L Hct 34.0 L MCV 84 MCH 28.8 MCHC 34.3 RDW 14.4 H Plt Count 224 Seg Neutrophils % 70.9 Sodium 142.6 Potassium 3.7 Chloride 104 Carbon Dioxide 25 Anion Gap 14 BUN 6 L Creatinine 0.70 Est GFR ( Amer) > 60 Glucose 93 Calcium 9.0 03/01/19 02:20 Sputum Gram Stain - Final 03/01/19 02:20 Sputum Sputum Culture - Final Morax.(Branhamella)Catarrhalis Normal Hina Impressions: Abdomen/Pelvis CT 03/04/19 00:00 IMPRESSION: 1. Segmental circumferential mural thickening associated with stranding of the pericolonic fat and reactive adenopathy involving the ascending colon and hepatic flexure - these findings are nonspecific and could represent an infectious, inflammatory or ischemic colitis. 2. Other findings as detailed above. Chest CT 03/04/19 00:00 IMPRESSION: Probable multifocal pneumonia or sepsis with unchanged appearance of the upper lobes, and interval development of airspace disease in both lower lobes. Status: Image reviewed by me Assessment & Plan - Diagnosis (1) Mass of right lung Is this a current diagnosis for this admission?: Yes Plan: Unknown if this is all infection or if there is a true mass in the right lung. I am worried with the soft tissue component that there may be a mass there. However agree with antibiotic treatment probably for the next 10 days. Thereafter we could do 1 of 2 things, he could be taken for bronchoscopy versus getting another CT in about 6 weeks time to take a look at that area. I will f ollow the patient as an outpatient and help Dr. Alfaro make this decision. (2) Colon wall thickening Is this a current diagnosis for this admission?: Yes Plan: Probably related to the C. difficile colitis but I think as an outpatient once the diarrhea comes down he would benefit from a colonoscopy. - Time Time Spent: Greater than 70 Minutes
--- NOTE | 2019-03-05 09:05 | PDOC PROGRESS REPORT ---
Subjective Progress Note for:: 03/05/19 Subjective:: Patient is feeling much better Patient denied any fever no chest pain no short of breath cough is also improving Patient's diarrhea is also improving Patient is refused to take any IV antibiotic and according to the patient he feels good and he does not think he needed any more Patient CT of the chest suggest multifocal pneumoniaAnd the lung massPatient seen by the oncology and suggest follow outpatient Patient CT abdomen and pelvis was all stable except some colitis with bowel wall thickening Since denied any abdominal pain no nausea no vomiting Reason For Visit: PNEUMONIA Physical Exam Vital Signs: Temp Pulse Resp BP Pulse Ox 98.8 F 62 17 131/62 H 99 03/05/19 00:00 03/05/19 00:00 03/05/19 00:00 03/05/19 00:00 03/05/19 00:00 Intake & Output 03/04/19 03/05/19 03/06/19 06:59 06:59 06:59 Intake Total 2640 2410 Balance 2640 2410 Weight 77 kg 81.1 kg General appearance: PRESENT: no acute distress, well-developed, well-nourished Head exam: PRESENT: atraumatic, normocephalic Eye exam: PRESENT: conjunctiva pink, EOMI, PERRLA. ABSENT: scleral icterus Ear exam: PRESENT: normal external ear exam Mouth exam: PRESENT: moist, tongue midline Neck exam: PRESENT: full ROM. ABSENT: carotid bruit, JVD, lymphadenopathy, thyromegaly Respiratory exam: PRESENT: clear to auscultation jose Cardiovascular exam: PRESENT: RRR. ABSENT: diastolic murmur, rubs, systolic murmur Pulses: PRESENT: normal dorsalis pedis pul, +2 pedal pulses bilateral Vascular exam: PRESENT: normal capillary refill GI/Abdominal exam: PRESENT: normal bowel sounds, soft. ABSENT: distended, guarding, mass, organolmegaly, rebound, tenderness Rectal exam: PRESENT: deferred Musculoskeletal exam: PRESENT: ambulatory Neurological exam: PRESENT: alert, awake, oriented to person, oriented to place, oriented to time, oriented to situation, CN II-XII grossly intact. ABSENT: motor sensory deficit Psychiatric exam: PRESENT: appropriate affect, normal mood. ABSENT: homicidal ideation, suicidal ideation Skin exam: PRESENT: dry, intact, warm. ABSENT: cyanosis, rash Results Laboratory Results: 03/05/19 05:25 03/05/19 05:25 03/05/19 03/05/19 05:25 05:25 WBC 8.1 RBC 4.05 L Hgb 11.7 L Hct 34.0 L MCV 84 MCH 28.8 MCHC 34.3 RDW 14.4 H Plt Count 224 Seg Neutrophils % 70.9 Sodium 142.6 Potassium 3.7 Chloride 104 Carbon Dioxide 25 Anion Gap 14 BUN 6 L Creatinine 0.70 Est GFR ( Amer) > 60 Glucose 93 Calcium 9.0 03/01/19 02:20 Sputum Gram Stain - Final 03/01/19 02:20 Sputum Sputum Culture - Final Morax.(Branhamella)Catarrhalis Normal Hina Impressions: Abdomen/Pelvis CT 03/04/19 00:00 IMPRESSION: 1. Segmental circumferential mural thickening associated with stranding of the pericolonic fat and reactive adenopathy involving the ascending colon and hepatic flexure - these findings are nonspecific and could represent an infectious, inflammatory or ischemic colitis. 2. Other findings as detailed above. Chest CT 03/04/19 00:00 IMPRESSION: Probable multifocal pneumonia or sepsis with unchanged appearance of the upper lobes, and interval development of airspace disease in both lower lobes. Assessment & Plan - Diagnosis (1) Right upper lobe pneumonia Qualifiers: Pneumonia type: due to unspecified organism Qualified Code(s): J18.9 - Pneumonia, unspecified organism Is this a current diagnosis for this admission?: Yes Plan: I think patient do not want to take any IV medications will put on a p.o. Levaquin (2) Mass of right lung Is this a current diagnosis for this admission?: Yes Plan: Follow outpatient further evaluations (3) Flu-like symptoms Is this a current diagnosis for this admission?: Yes Plan: Patient is finished the 5-day course of the Tamiflu (4) Chronic pain syndrome Is this a current diagnosis for this admission?: Yes Plan: Patient is currently see a pain management Dr. Lemus's currently taking the tramadol (5) Postnasal drip Is this a current diagnosis for this admission?: Yes (6) C. difficile colitis Is this a current diagnosis for this admission?: Yes Plan: Continues the Flagyl and probiotics - Time Time Spent with patient: 15-24 minutes Level of Care: MEDICAL Medications reviewed and adjusted accordingly: Yes Anticipated discharge: Home Within: within 24 hours - Plan Summary Plan Summary: Well patient's p.o. intake is good remain afebrile white count is normal we will continues the patient Levaquin and Flagyl for another 7 to 10 days as an outpatient while patient did not want to take any IV medications hopefully remain afebrile discharge tomorrow
[2019-03-05] MEDS: TRAMADOL HCL 50 MG TABLET PO SCH ×4 (09:25→21:09)
[2019-03-05] MEDS: LACTOBACILLUS ACIDOPHILUS 250 MG TAB PO SCH ×2 (09:26→17:09)
[2019-03-05] MEDS: METRONIDAZOLE 500 MG TABLET PO SCH ×3 (09:26→17:09)
[2019-03-05] MEDS: HORIZANT 600 MG PO SCH ×2 (09:27→21:09)
[2019-03-05] MEDS: LEVOFLOXACIN 500 MG TABLET PO SCH (09:27)
[2019-03-05] MEDS ORDERED: DOCUSATE SODIUM 100 MG CAPSULE PO SCH (10:00)
[2019-03-06 00:46] VITALS: BP 147/90
[2019-03-06] MEDS: PANTOPRAZOLE SODIUM 40 MG TABLET.DR PO SCH (05:01)
[2019-03-06 06:04] LABS: ABSOLUTE EOSINOPHILS # (AUTO) 0.2 10^3/uL (0.0-0.6); ABSOLUTE LYMPHOCYTES (AUTO) 2.1 10^3/uL (0.5-4.7); ABSOLUTE MONOCYTES (AUTO) 0.5 10^3/uL (0.1-1.4); ABSOLUTE NEUT (AUTO) 3.1 10^3/uL (1.7-8.2); BASOPHILS % (AUTO) 0.6 % (0-2); EOSINOPHILS % (AUTO) 3.6 % (0-6); HEMATOCRIT 34.2 % (37.9-51.0); HEMOGLOBIN 11.6 g/dL (13.5-17.0); LYMPHOCYTES % (AUTO) 35.5 % (13-45); MEAN CORPUSCULAR HEMOGLOBIN 28.5 pg (27.0-33.4); MEAN CORPUSCULAR VOLUME 84 fl (80-97); PLATELET COUNT 240 10^3/uL (150-450); RED BLOOD COUNT 4.08 10^6/uL (4.35-5.55); RED CELL DISTRIBUTION WIDTH 14.2 % (11.5-14.0); SEGMENTED NEUTROPHILS % (AUTO) 52.3 % (42-78); TOTAL CELLS COUNTED % (AUTO) 100 %; WHITE BLOOD COUNT 5.9 10^3/uL (4.0-10.5)
[2019-03-06 06:23] LABS: ANION GAP 11 (5-19); BLOOD UREA NITROGEN 11 mg/dL (7-20); CALCIUM 8.9 mg/dL (8.4-10.2); CARBON DIOXIDE 25 mmol/L (22-30); CHLORIDE 105 mmol/L (98-107); GLUCOSE 112 mg/dL (75-110); POTASSIUM 3.6 mmol/L (3.6-5.0)
--- NOTE | 2019-03-06 08:58 | Progress Note ---
Provider Note Provider Note: [facility] Telephone Advice Consultation Chart reviewed. This is a 53-year-old man without significant history who was admitted to the hospital on 02/28 due to fever, cough and he also developed diarrhea. On admission he was found with pneumonia but also concerns of maligna ncy as CT scan described a mass-like lesion in the right lung. His blood cultures on 02/28 are negative but sputum culture was positive for Moraxella catarrhalis. His stools were positive for C diff toxin. He as started on metronidazole IV, transitioned to oral. He is on levofloxacin for pneumonia. He has clinically improved. Vital Signs: Temp Pulse Resp BP Pulse Ox 98.6 F 57 L 17 147/90 H 100 03/06/19 08:11 03/06/19 08:11 03/06/19 08:11 03/06/19 08:11 03/06/19 08:11 Intake & Output 03/05/19 03/06/19 03/07/19 06:59 06:59 06:59 Intake Total 2410 1665 Balance 2410 1665 Weight 81.1 kg 79.8 kg Weight/Height Weight 79.8 kg Height 5 ft 9 in Laboratories: 03/06/19 05:03 03/06/19 05:03 MCV 84 fl (80-97) 03/06/19 05:03 MCH 28.5 pg (27.0-33.4) 03/06/19 05:03 MCHC 34.0 g/dL (32.0-36.0) 03/06/19 05:03 RDW 14.2 % (11.5-14.0) H 03/06/19 05:03 Seg Neutrophils % 52.3 % (42-78) 03/06/19 05:03 Chloride 105 mmol/L (98-107) 03/06/19 05:03 Carbon Dioxide 25 mmol/L (22-30) 03/06/19 05:03 Anion Gap 11 (5-19) 03/06/19 05:03 Est GFR ( Amer) > 60 (>60) 03/06/19 05:03 Glucose 112 mg/dL (75-110) H 03/06/19 05:03 Calcium 8.9 mg/dL (8.4-10.2) 03/06/19 05:03 Total Bilirubin 0.4 mg/dL (0.2-1.3) 03/01/19 04:14 AST 16 U/L (17-59) L 03/01/19 04:14 Alkaline Phosphatase 49 U/L (38-126) 03/01/19 04:14 Total Protein 5.8 g/dL (6.3-8.2) L 03/01/19 04:14 Albumin 3.4 g/dL (3.5-5.0) L 03/01/19 04:14 02/28/19 18:28 Blood Blood Culture - Final NO GROWTH IN 5 DAYS 02/28/19 18:11 Blood Blood Culture - Final NO GROWTH IN 5 DAYS 03/01/19 Sputum culture Moraxella catarrhalis Radiology: Abdomen/Pelvis CT 03/04/19 00:00 IMPRESSION: 1. Segmental circumferential mural thickening associated with st randing of the pericolonic fat and reactive adenopathy involving the ascending colon and hepatic flexure - these findings are nonspecific and could represent an infectious, inflammatory or ischemic colitis. 2. Other findings as detailed above. Chest CT 03/04/19 00:00 IMPRESSION: Probable multifocal pneumonia or sepsis with unchanged appearance of the upper lobes, and interval development of airspace disease in both lower lobes. Assessment and Recommendations: Patient with pneumonia due to Moraxella catarrhalis and Clostridioides difficile infectious diarrhea/colitis. He is clinically improved, however the recommendation for CDI per guidelines is vancomycin po 125 mg ever 6 hr for 10 days as there is high risk or relapse with metronidazole especially with concomitant use of antibiotics. Will recommend to switch therapy to vancomycin po. For pneumonia, even though fluoroquinilones are effective against Moraxella, with current C diff infection, it may worsen and increase the risk of complications. An alternative will be azithromycin or doxycycline to complete a total of 7 days of treatment. Please call if questions. Shania Landin MD [facility] Infectious Disease [phone]
--- NOTE | 2019-03-06 09:23 | PDOC PROGRESS REPORT ---
Subjective Progress Note for:: 03/06/19 Subjective:: No acute events overnight patient ready for discharge today Reason For Visit: PNEUMONIA Physical Exam Vital Signs: Temp Pulse Resp BP Pulse Ox 98.6 F 57 L 17 147/90 H 100 03/06/19 08:11 03/06/19 08:11 03/06/19 08:11 03/06/19 08:11 03/06/19 08:11 Intake & Output 03/05/19 03/06/19 03/07/19 06:59 06:59 06:59 Intake Total 2410 1665 Balance 2410 1665 Weight 81.1 kg 79.8 kg General appearance: PRESENT: no acute distress, well-developed, well-nourished Head exam: PRESENT: atraumatic, normocephalic Eye exam: PRESENT: conjunctiva pink, EOMI, PERRLA. ABSENT: scleral icterus Ear exam: PRESENT: normal external ear exam Mouth exam: PRESENT: moist, tongue midline Neck exam: ABSENT: carotid bruit, JVD, lymphadenopathy, thyromegaly Respiratory exam: PRESENT: clear to auscultation jose. ABSENT: rales, rhonchi, wheezes Cardiovascular exam: PRESENT: RRR. ABSENT: diastolic murmur, rubs, systolic murmur Pulses: PRESENT: normal dorsalis pedis pul Vascular exam: PRESENT: normal capillary refill GI/Abdominal exam: PRESENT: normal bowel sounds, soft. ABSENT: distended, guarding, mass, organolmegaly, rebound, tenderness Rectal exam: PRESENT: deferred Extremities exam: PRESENT: full ROM. ABSENT: calf tenderness, clubbing, pedal edema Neurological exam: PRESENT: alert, awake, oriented to person, oriented to place, oriented to time, oriented to situation, CN II-XII grossly intact. ABSENT: motor sensory deficit Psychiatric exam: PRESENT: appropriate affect, normal mood. ABSENT: homicidal ideation, suicidal ideation Skin exam: PRESENT: dry, intact, warm. ABSENT: cyanosis, rash Results Laboratory Results: 03/06/19 05:03 03/06/19 05:03 03/06/19 03/06/19 05:03 05:03 WBC 5.9 RBC 4.08 L Hgb 11.6 L Hct 34.2 L MCV 84 MCH 28.5 MCHC 34.0 RDW 14.2 H Plt Count 240 Seg Neutrophils % 52.3 Sodium 141.2 Potassium 3.6 Chloride 105 Carbon Dioxide 25 Anion Gap 11 BUN 11 Creatinine 0.69 Est GFR ( Amer) > 60 Glucose 112 H Calcium 8.9 02/28/19 18:28 Blood Blood Culture - Final NO GROWTH IN 5 DAYS 02/28/19 18:11 Blood Blood Culture - Final NO GROWTH IN 5 DAYS Impressions: Abdomen/Pelvis CT 03/04/19 00:00 IMPRESSION: 1. Segmental circumferential mural thickening associated with stranding of the pericolonic fat and reactive adenopathy involving the ascending colon and hepatic flexure - these findings are nonspecific and could represent an infectious, inflammatory or ischemic colitis. 2. Other findings as detailed above. Chest CT 03/04/19 00:00 IMPRESSION: Probable multifocal pneumonia or sepsis with unchanged appearance of the upper lobes, and interval development of airspace disease in both lower lobes. Assessment & Plan - Diagnosis (1) Mass of right lung Is this a current diagnosis for this admission?: Yes Plan: Plan for follow-up in 2 weeks we will set up repeat imaging (2) Colon wall thickening Is this a current diagnosis for this admission?: Yes Plan: Patient would benefit from colonoscopy as an outpatient - Time Time Spent with patient: 15-24 minutes
--- NOTE | 2019-03-06 13:22 | PDOC DISCHARGE SUMMARY ---
Impression - Admit/DC Date/PCP Admission Date/Primary Care Provider: 02/28/19 17:01 MARIN ALFARO MD Discharge Date: 03/06/19 - Discharge Diagnosis (1) Right upper lobe pneumonia Is this a current diagnosis for this admission?: Yes (2) Mass of right lung Is this a current diagnosis for this admission?: Yes (3) Flu-like symptoms Is this a current diagnosis for this admission?: Yes (4) Chronic pain syndrome Is this a current diagnosis for this admission?: Yes (5) Postnasal drip Is this a current diagnosis for this admission?: Yes (6) C. difficile colitis Is this a current diagnosis for this admission?: Yes - Additional Information Resuscitation Status: Full Code Discharge Diet: Regular Discharge Activity: Activity As Tolerated Referrals: VINOD PRESTON MD [ACTIVE STAFF] - 04/10/19 9:30 am (Will require a referral from your Primary Care Physcian. They will mail you information about your appointment. Thank you and have a great day.) LILIAN CORTEZ MD [ACTIVE STAFF] - 03/21/19 1:00 pm (PLEASE ARRIVE AT LEAST 15 MINUTES PRIOR TO APPT.) MARIN ALFARO MD [Primary Care Provider] - 03/14/19 11:15 am Prescriptions: Metronidazole [Flagyl 500 mg Tablet] 500 mg PO TID #30 tablet Levofloxacin [Levaquin 500 mg Tablet] 500 mg PO DAILY #10 tablet Home Medications: Baclofen [Baclofen 10 mg Tablet] 10 mg PO Q8HP PRN 02/28/19 Gabapentin Enacarbil [Horizant] 600 mg PO Q12 02/28/19 Promethazine HCl [Phenergan 25 mg Tablet] 25 mg PO Q8HP PRN 02/28/19 Sildenafil Citrate [Viagra] 50 mg PO ASDIR PRN 02/28/19 Tramadol HCl [Ultram 50 mg Tablet] 50 mg PO QID 02/28/19 Levofloxacin [Levaquin 500 mg Tablet] 500 mg PO DAILY #10 tablet 03/06/19 Metronidazole [Flagyl 500 mg Tablet] 500 mg PO TID #30 tablet 03/06/19 History of Present Illiness History of Present Illness: JOHNNY BUCKLEY is a 53 year old male atient is here for follow-up for the CT scan chest report and a 1 day follow-up for the fever and chills Patient's chest x-ray initially showed a right upper lobe mass have a CT of the chest done which suggest a masslike effect possible infiltrate According to the patient he has a very frequent pneumonia in the past when he was in [place] always receive the antibiotic Patient came yesterday with a fever chills with the 102 fever initial flu test in office was negative patient was started on Augmentin and Tamiflu Patient is feeling much better this morning but according to the patient having some sweating the fever last night's Patient is denied any smoking but 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 Patient do not know why he got in the pneumonia when he was in [place] more frequently Patient other than that no chronic back problems but other than that no other medical history is Hospital Course Hospital Course: This is a 53-year-old male is presenting the office with a fever Chills and the patient symptom at this point initially started on the Tamiflu and antibiotics and the patient had a chest x-ray done which showed some right upper lobe mass and a CT of the chest was done which shows consistent masslike effect and the patient at this point decided to admitting in the hospital for the further evaluation and treatments Patient started on IV cefepime and the patient responds very well the patient also developed a C. difficile patient switched to the p.o. Levaquin and start on a Flagyl p.o. Patient is also seen by the oncology for the lung mass and suggested repeat the CT scan in a 6-week and follow in his office may be a possible bronchoscopy Patient also see the pulmonary and suggest the continues to Zithromax for 7 days and p.o. vancomycin's for the C. difficile Patient is otherwise doing well patient's p.o. intake is good patient having no fever no chills patient at this point is wants to go home's patient otherwise having no other issues Discussed with the patient is close follow in the office and follow with the pulmonary and follow-up with the oncology for further evaluations Is really wants to go home and at this point patient is pretty much on the p.o. medications and discussed with the patient about if is any fever any chills needs to be follow As part of the pulmonary recommendations we will switch the patient on a Zithromax and the vancomycin's p.o. Physical Exam Vital Signs: Temp Pulse Resp BP Pulse Ox 98.6 F 57 L 17 147/90 H 100 03/06/19 08:11 03/06/19 08:11 03/06/19 08:11 03/06/19 08:11 03/06/19 08:11 Intake & Output 03/05/19 03/06/19 03/07/19 06:59 06:59 06:59 Intake Total 2410 1665 Balance 2410 1665 Weight 81.1 kg 79.8 kg General appearance: PRESENT: no acute distress, well-developed, well-nourished Head exam: PRESENT: atraumatic, normocephalic Eye exam: PRESENT: conjunctiva pink, EOMI, PERRLA. ABSENT: scleral icterus Ear exam: PRESENT: normal external ear exam Mouth exam: PRESENT: moist, tongue midline Neck exam: ABSENT: carotid bruit, JVD, lymphadenopathy, thyromegaly Respiratory exam: PRESENT: clear to auscultation jose. ABSENT: rales, rhonchi, wheezes Cardiovascular exam: PRESENT: RRR. ABSENT: diastolic murmur, rubs, systolic murmur Pulses: PRESENT: normal dorsalis pedis pul Vascular exam: PRESENT: normal capillary refill GI/Abdominal exam: PRESENT: normal bowel sounds, soft. ABSENT: distended, guarding, mass, organolmegaly, rebound, tenderness Rectal exam: PRESENT: deferred Extremities exam: PRESENT: full ROM. ABSENT: calf tenderness, clubbing, pedal edema Neurological exam: PRESENT: alert, awake, oriented to person, oriented to place, oriented to time, oriented to situation, CN II-XII grossly intact. ABSENT: motor sensory deficit Psychiatric exam: PRESENT: appropriate affect, normal mood. ABSENT: homicidal ideation, suicidal ideation Skin exam: PRESENT: dry, intact, warm. ABSENT: cyanosis, rash Results Laboratory Results: WBC 5.9 10^3/uL (4.0-10.5) 03/06/19 05:03 RBC 4.08 10^6/uL (4.35-5.55) L 03/06/19 05:03 Hgb 11.6 g/dL (13.5-17.0) L 03/06/19 05:03 Hct 34.2 % (37.9-51.0) L 03/06/19 05:03 MCV 84 fl (80-97) 03/06/19 05:03 MCH 28.5 pg (27.0-33.4) 03/06/19 05:03 MCHC 34.0 g/dL (32.0-36.0) 03/06/19 05:03 RDW 14.2 % (11.5-14.0) H 03/06/19 05:03 Plt Count 240 10^3/uL (150-450) 03/06/19 05:03 Lymph % (Auto) 35.5 % (13-45) 03/06/19 05:03 [place] % (Auto) 8.0 % (3-13) 03/06/19 05:03 Eos % (Auto) 3.6 % (0-6) 03/06/19 05:03 Baso % (Auto) 0.6 % (0-2) 03/06/19 05:03 Absolute Neuts (auto) 3.1 10^3/uL (1.7-8.2) 03/06/19 05:03 Absolute Lymphs (auto) 2.1 10^3/uL (0.5-4.7) 03/06/19 05:03 Absolute Monos (auto) 0.5 10^3/uL (0.1-1.4) 03/06/19 05:03 Absolute Eos (auto) 0.2 10^3/uL (0.0-0.6) 03/06/19 05:03 Absolute Basos (auto) 0.0 10^3/uL (0.0-0.2) 03/06/19 05:03 Seg Neutrophils % 52.3 % (42-78) 03/06/19 05:03 Sodium 141.2 mmol/L (137-145) 03/06/19 05:03 Potassium 3.6 mmol/L (3.6-5.0) 03/06/19 05:03 Chloride 105 mmol/L (98-107) 03/06/19 05:03 Carbon Dioxide 25 mmol/L (22-30) 03/06/19 05:03 Anion Gap 11 (5-19) 03/06/19 05:03 BUN 11 mg/dL (7-20) 03/06/19 05:03 Creatinine 0.69 mg/dL (0.52-1.25) 03/06/19 05:03 Est GFR ( Amer) > 60 (>60) 03/06/19 05:03 Est GFR (MDRD) Non-Af > 60 (>60) 03/06/19 05:03 Glucose 112 mg/dL (75-110) H 03/06/19 05:03 Calcium 8.9 mg/dL (8.4-10.2) 03/06/19 05:03 Total Bilirubin 0.4 mg/dL (0.2-1.3) 03/01/19 04:14 Direct Bilirubin 0.1 mg/dL (0.0-0.4) 03/01/19 04:14 Neonat Total Bilirubin Not Reportable 03/01/19 04:14 Neonat Direct Bilirubin Not Reportable 03/01/19 04:14 Neonat Indirect Bili Not Reportable 03/01/19 04:14 AST 16 U/L (17-59) L 03/01/19 04:14 ALT 15 U/L (<50) 03/01/19 04:14 Alkaline Phosphatase 49 U/L (38-126) 03/01/19 04:14 Total Protein 5.8 g/dL (6.3-8.2) L 03/01/19 04:14 Albumin 3.4 g/dL (3.5-5.0) L 03/01/19 04:14 Stl C. Difficile GDH Ag POSITIVE (NEGATIVE) 03/03/19 16:15 Stl C.difficile Tox A&B POSITIVE (NEGATIVE) 03/03/19 16:15 Impressions: Abdomen/Pelvis CT 03/04/19 00:00 IMPRESSION: 1. Segmental circumferential mural thickening associated with stranding of the pericolonic fat and reactive adenopathy involving the ascending colon and hepatic flexure - these findings are nonspecific and could represent an infectious, inflammatory or ischemic colitis. 2. Other findings as detailed above. Chest CT 03/04/19 00:00 IMPRESSION: Probable multifocal pneumonia or sepsis with unchanged appearance of the upper lobes, and interval development of airspace disease in both lower lobes. Plan Time Spent: Greater than 30 Minutes - Follow in office in 1 week repeat the CBC Chem-7 and repeat the chest x-ray Follow-up pulmonary in 2 weeks and oncology Stroke Is this a Stroke Patient?: No Acute Heart Failure - Is this a Heart Failure Patient?: No
== END 2019-03-06 09:01 | disposition home or self-care (01) | DRG 178 ==
LOC: UNDOADMIN 17:01 → 4S 17:01
PROVIDERS: ADMIT Family Medicine; ATTEND Family Medicine
DX: J15.8 Pneumonia due to other specified bacteria (principal); K52.1 Toxic gastroenteritis and colitis; A04.72 Enterocolitis due to Clostridium difficile, not specified as recurrent; R91.8 Other nonspecific abnormal finding of lung field; G89.4 Chronic pain syndrome; R09.82 Postnasal drip; T36.1X5A Adverse effect of cephalosporins and other beta-lactam antibiotics, initial encounter; Y92.230 Patient room in hospital as the place of occurrence of the external cause
CPT/HCPCS: 36415; 71250; 74177; 80048; 80053; 85025; 87040; 87070; 87077; 87086; 87205; 87324; 87449; 94640; J0692; J2405; J3490; J7030; J7620

== ENCOUNTER → 2019-02-28 | Outpatient (CLI) | payer OTHER ==
--- NOTE | 2019-02-28 13:53 | RADIOLOGY REPORT (SQ) ---
EXAM DESCRIPTION: CT CHEST WITH COMPLETED DATE/TIME: 02/28/2019 10:33 am REASON FOR STUDY: R91.8 OTHER NONSPECIFIC ABNORMAL FINDING OF LUNG FIELD R91.8 OTHER NONSPECIFIC AB NORMAL FINDING OF LUNG FIELD COMPARISON: None. TECHNIQUE: CT scan of the chest performed using helical scanning technique with dynamic intravenous contrast injection. Images reviewed with lung, soft tissue and bone windows. Reconstructed coronal and sagittal MPR and MIP images reviewed. All images stored on PACS. All CT scanners at this facility use dose modulation, iterative reconstruction, and/or weight based d osing when appropriate to reduce radiation dose to as low as reasonably achievable (ALARA). [facility]: Dose Right [facility]: CareDose [facility]: Dose Right [facility]: Teradose 4D [facility]: Cympel CONTRAST TYPE AND DOSE: contrast/concentration: Isovue 350.00 mg/ml; Total Contrast Delivered: 80.0 ml; Total Saline Delivered: 41.0 ml RENAL FUNCTION: Creatinine 0.8 RADIATION DOSE: CT Rad equipment meets quality standard of care and radiation dose reduction techniq ues were employed. CTDIvol: 8.4 mGy. DLP: 334 mGy-cm. . LIMITATIONS: None. FINDINGS: LUNGS AND PLEURA: There is a 43 mm area of masslike opacification in the right upper lobe. There are small areas of ground-glass infiltrate around this region. There is air bronchogram with in this. There are couple of smaller irregular areas of opacification in the left upper lobe. HILAR AND MEDIASTINAL STRUCTURES: No identified masses or abnormal nodes. HEART AND VASCULAR STRUCTURES: No aneurysm or dissection. No central pulmonary emboli. No pericardi al effusion. HARDWARE: None in the chest. UPPER ABDOMEN: No significant findings. Limited exam. THYROID AND OTHER SOFT TISSUES: No masses. No adenopathy. BONES: No significant finding. OTHER: No other significant finding. IMPRESSION: There are areas of masslike opacification both upper lobes, larger on the right. There are several smaller areas of opacification. This is felt most likely to be secondary to multicentric pneumonia. Cannot entirely exclude neoplasm. Recommend CT follow-up after treatment. TECHNICAL DOCUMENTATION: JOB ID: [id number] Quality ID # [id number]: Final reports with documentation of one or more dose reduction techniques (e.g., Au tomated exposure control, adjustment of the mA and/or kV according to patient size, use of iterative reconstruction technique) 2010 [employer]- All Rights Reserved Reading location - IP/workstation name: [email or web address]
== END ==
LOC: RAD 10:02
PROVIDERS: ATTEND Family Medicine
DX: R91.8 Other nonspecific abnormal finding of lung field (principal)
CPT/HCPCS: 71260; 82565

== ENCOUNTER → 2019-03-15 | Outpatient (CLI) | payer OTHER ==
--- NOTE | 2019-03-15 16:31 | RADIOLOGY REPORT (SQ) ---
EXAM DESCRIPTION: CHEST PA/LATERAL COMPLETED DATE/TIME: 03/15/2019 3:36 pm REASON FOR STUDY: BRONCHOPNEUMONIA COMPARISON: 02/27/2019. EXAM PARAMETERS: NUMBER OF VIEWS: two views TECHNIQUE: Digital Frontal and Lateral radiographic views of the chest acquired. RADIATION DOSE: NA LIMITATIONS: none FINDINGS: LUNGS AND PLEURA: The density in the right upper lobe has decreased in size. The lungs ar e otherwise clear. No pleural effusion. No pneumothorax. MEDIASTINUM AND HILAR STRUCTURES: No masses or contour abnormalities. HEART AND VASCULAR STRUCTURES: Heart normal size. No evidence for failure. BONES: No acute findings. Degenerative changes in the spine. HARDWARE: None in the chest. OTHER: No other significant finding. IMPRESSION: INTERVAL DECREASE IN THE RIGHT UPPER LOBE DENSITY. TECHNICAL DOCUMENTATION: JOB ID: [id number] [employer]- All Rights Reserved Reading location - IP/workstation name: [email or web address]
== END ==
LOC: OD 15:15
PROVIDERS: ATTEND Family Medicine
DX: J18.0 Bronchopneumonia, unspecified organism (principal)
CPT/HCPCS: 71046

== ENCOUNTER → 2019-05-01 | Outpatient (CLI) | payer OTHER ==
--- NOTE | 2019-05-01 13:59 | RADIOLOGY REPORT (SQ) ---
EXAM DESCRIPTION: CT CHEST WITH COMPLETED DATE/TIME: 05/01/2019 9:33 am REASON FOR STUDY: R91.1 SOLITARY PULMONARY NODULE R91.1 SOLITARY PULMONARY NODULE COMPARISON: 03/04/2019 TECHNIQUE: CT scan of the chest performed using helical scanning technique with dynamic intravenous contrast injection. Images reviewed with lung, soft tissue and bone windows. Reconstructed coronal and sagittal MPR and MIP images reviewed. All images stored on PACS. All CT scanners at this facility use dose modulation, iterative reconstruction, and/or weight based d osing when appropriate to reduce radiation dose to as low as reasonably achievable (ALARA). [facility]: Dose Right [facility]: CareDose [facility]: Dose Right [facility]: Teradose 4D [facility]: Bevy CONTRAST TYPE AND DOSE: contrast/concentration: Isovue 350.00 mg/ml; Total Contrast Delivered: 80.0 ml; Total Saline Delivered: 55.0 ml RENAL FUNCTION: Creatinine 0.8 RADIATION DOSE: CT Rad equipment meets quality standard of care and radiation dose reduction techniq ues were employed. CTDIvol: 7.7 mGy. DLP: 317 mGy-cm. . LIMITATIONS: None. FINDINGS: LUNGS AND PLEURA: The areas of opacification previously seen in both lungs have resolved. There is no pleural effusion. Infiltrate, or mass. HILAR AND MEDIASTINAL STRUCTURES: No identified masses or abnormal nodes. HEART AND VASCULAR STRUCTURES: No aneurysm or dissection. No central pulmonary emboli. No pericardi al effusion. HARDWARE: None in the chest. UPPER ABDOMEN: No significant findings. Limited exam. THYROID AND OTHER SOFT TISSUES: No masses. No adenopathy. BONES: No significant finding. OTHER: No other significant finding. IMPRESSION: The areas of opacification previously seen in both lungs have resolved. No acute cardio pulmonary findings. TECHNICAL DOCUMENTATION: JOB ID: [id number] Quality ID # [id number]: Final reports with documentation of one or more dose reduction techniques (e.g., Au tomated exposure control, adjustment of the mA and/or kV according to patient size, use of iterative reconstruction technique) 2010 [employer]- All Rights Reserved Reading location - IP/workstation name: [email or web address]
== END ==
LOC: RAD 08:59
PROVIDERS: ATTEND Internal Medicine
DX: R91.1 Solitary pulmonary nodule (principal)
CPT/HCPCS: 71260; 82565